=== PATIENT | male | born 2000 | race Two or more races ===

== ENCOUNTER 2025-06-11 23:10 | Emergency (ER) | payer MEDICAID ==
[~2025-06-11] VITALS: Ht 157.5 cm; Wt 56.5 kg
[~2025-06-11 23:10] MED LIST: PRED10PA7
[2025-06-11] MEDS: SODIUM CHLORIDE 0.9% 1,000 ML IV ONE (23:33)
[2025-06-11] MEDS: diphenhdrAMINE HCL 50 MG/1 ML VL IV ONE (23:34)
[2025-06-11] MEDS: methylPREDNISolone SOD SUCC 125 MG/2 ML VL IV ONE (23:34)
[2025-06-11] MEDS: FAMOTIDINE (10MG/ML) 2ML VL IV ONE (23:34)
[2025-06-12 00:08] VITALS: BP 100/60; TEMP 98.7
[2025-06-12 00:10] VITALS: PULSE 76; RESP 19; O2SAT 98
[2025-06-12] MEDS ORDERED: METH4PAK PO (00:22)
[2025-06-12] MEDS ORDERED: FAMO20TA10 PO (00:23)
[2025-06-12] MEDS ORDERED: LORA-622 PO (00:23)
--- NOTE | 2025-06-12 00:24 | ED.PDOC ---
HPI Allergic reaction HPI Comments PATIENT COMES WITH C/C OF ALLERGIC REACTION PATIENT WITH VISIBLE HIVES AND ITHCING, PATIENT FEELS LIKE ITS HARD TO BREATH SATURATIONS CURRENTLY AT 99% ON ROOM AIR. PATIENT REPORTS HE WAS JUST PETTING HIS DOG AND THEN TOOK A SHOWER WHEN IT HAPPENED DENIES DIFFICULTY BREATHING, SHORTNESS OF BREATH, CHEST PAIN, THROAT SWELLING, NAUSEA OR VOMITING. Chief Complaint: Allergic Reaction Time Seen by MD: 23:18 Primary Care Provider: MD MIKE Reviewed Notes: Nurses Notes, Medications, Allergies Allergies: Coded Allergies: Clindamycin (Verified Allergy, Unknown, 06/11/25) Vancomycin (Verified Allergy, Unknown, 06/11/25) Home Meds Reported Medications Prednisone (Sterapred Ds 12 Day) 10 Mg Alphonso 11/24/11 Information Source: Patient Mode of Arrival: Ambulatory Past Medical History PAST MEDICAL HISTORY: Anxiety Family History Family History: No family hx of DM, No family hx of HTN, No family hx ofKidney josue Social History Smoker: Non-Smoker Alcohol: Denies ETOH Use Drugs: Denies Drug Use Lives In: Home All Other Systems: Reviewed and Negative (SEE HPI) Physical Exam General Appearance: No Apparent Distress, Normal HEENT: Normal ENT Inspection, Pharynx Normal, TMs Normal Neck: Full Range of Motion, Non-Tender Respiratory: Chest Non-Tender, Lungs Clear, No Accessory Muscle Use, No Respiratory Distress, Normal Breath Sounds Cardiovascular: No Edema, No JVD, No Murmur, No Gallop, Normal Peripheral Pulses, Regular Rate/Rhythm Breast Exam: Deferred Gastrointestinal: No Organomegaly, Non Tender, No Pulsatile Mass, Normal Bowel Sounds, Soft Genitalia: Deferred Pelvic: Deferred Rectal: Deferred Extremities: Normal capillary refill, Normal range of motion, No pedal edema Musculoskeletal : Apperance: Normal Neurologic: Alert, No Motor Deficits, Normal Affect, Normal Mood, No Sensory Deficits Cerebellar Function: Normal Reflexes: NOT DONE Skin: Dry, Normal Color, Rash (DIFFUSE URTICARIAL RASH ON TORSO BILATERAL ARMS LEGS AND FACE EXCORIATIONS OR OPEN LESIONS OR DRAINAGE), Warm Lymphatic: No Adenopathy Was a procedure done? Was a procedure done?: No Differential diagnosis (all) Differential Diagnosis: Anaphylaxis, Angioedema, Bronchospasm, Hypotension, Urticaria X-Ray, Labs, Meds, VS Vital Signs Date Time Temp Pulse Resp B/P (MAP) Pulse Ox O2 Delivery O2 Flow Rate FiO2 9/1/25 00:10 76 19 98 Room Air 06/12/25 00:08 98.7 76 19 100/60 (73) 98 98.7 06/11/25 23:12 98.2 101 20 111/67 99 98.2 Current Medications Medications (Trade) Dose Ordered Sig/Otilio Route Start Time Stop Time Status Last Admin Methylprednisolone Sodium Succinate (Solu Medrol) 125 mg ONCE ONCE IV 06/11/25 23:30 06/11/25 23:31 DC 06/11/25 23:34 Famotidine (Pepcid Injection) 20 mg ONCE ONCE IV 06/11/25 23:30 06/11/25 23:31 DC 06/11/25 23:34 Diphenhydramine HCl (Benadryl Injection) 25 mg ONCE ONCE IV 06/11/25 23:30 06/11/25 23:31 DC 06/11/25 23:34 Sodium Chloride 1,000 ml @ 1,000 mls/hr Q1H ONCE IV 06/11/25 23:30 06/12/25 00:29 06/11/25 23:33 X-Ray, Labs, Meds, VS Comment Patient given Solu-Medrol 125 mg IV push. Benadryl 25 mg IV push. Pepcid 20 mg IV push we will saline a 1000 L bolus. Moderate improvement in itching and hives airway clear patent patient talking in full sentences requesting discharge at this time. Script trial of Medrol Dosepak and Pepcid and loratadine x7 days advised to rest increase p.o. fluids with electrolytes. Advised to follow up with his PCP in 2-3 days as necessary consider referral to Allergy just if symptoms persist. Return precautions given patient indicates understanding agrees Time of 1ST Reevaluation: 23:18 Reevaluation 1ST: Unchanged Time of 2ND Reevaluation: 00:19 Reevaluation 2ND: Improved Patient Education/Counseling: Diagnosis, Treatment, Prognosis, Need For Follow Up Family Education/Counseling: Diagnosis, Treatment, Prognosis, Need For Follow Up SEPSIS Sepsis Screen Date sepsis recognized/suspect: Jun 11, 2025 Time Sepsis recognized/suspect: 2315 Recent Procedure: No On Antibiotic Therapy: No Respiratory Rate >20: No Heart Rate >90: No Temp<36 C (96.8 F) or >38.3 C: No SBP <90 or MAP <65 mmHG: No New Acute Mental Status Change: No Is the patient on CPAP, BIPAP,: No Physician Orders Sodium Chloride 0.9% (06/11/25 23:30) Vital Signs Date Time Temp Pulse Resp B/P (MAP) Pulse Ox O2 Delivery O2 Flow Rate FiO2 06/12/25 00:10 76 19 98 Room Air 06/12/25 00:08 98.7 76 19 100/60 (73) 98 98.7 06/11/25 23:12 98.2 101 20 111/67 99 98.2 Medications Medications Dose Ordered Sig/Otilio Route Start Time Stop Time Status Last Admin Dose Admin Diphenhydramine HCl 25 mg ONCE ONCE IV 06/11/25 23:30 06/11/25 23:31 DC 06/11/25 23:34 Famotidine 20 mg ONCE ONCE IV 06/11/25 23:30 06/11/25 23:31 DC 06/11/25 23:34 Methylprednisolone Sodium Succinate 125 mg ONCE ONCE IV 06/11/25 23:30 06/11/25 23:31 DC 06/11/25 23:34 Sodium Chloride 1,000 ml @ 1,000 mls/hr Q1H ONCE IV 06/11/25 23:30 06/12/25 00:29 06/11/25 23:33 Departure 1 Departure Time of Disposition: 00:18 Impression: Primary Impression: Allergic reaction Qualified Codes: T78.40XA - Allergy, unspecified, initial encounter Disposition: HOME / SELF CARE / HOMELESS Condition: Stable e-Prescriptions Loratadine (Claritin) 10 Mg Tab 1 TAB PO DAILY for 10 Days, #10 TAB Prov: YAIR IBARRA 06/12/25 Famotidine (PEPCID TABLET) 20 Mg Tb 1 TAB PO BID for 6 Days, #12 TAB Prov: YAIR IBARRA 06/12/25 Methylprednisolone (Medrol Dosepak) 4 Mg Alphonso 4 MG PO UD for 6 Days, #21 TAB UAD Prov: YAIR IBARRA 06/12/25 Discharged With: Significant Other Critical Care Note Critical Care Time?: No Stability Stability form required: No YAIR IBARRA Jun 12, 2025 00:24
== END 2025-06-12 00:36 | disposition home or self-care (01) ==
LOC: ER 23:10
DX: T78.40XA Allergy, unspecified, initial encounter (principal); F41.9 Anxiety disorder, unspecified; Z88.1 Allergy status to other antibiotic agents; X58.XXXA Exposure to other specified factors, initial encounter
CPT/HCPCS: 96361; 96374; 96375; 99284; J1200; J2919; J3490; J7030